=== PATIENT | female | born 1960 | race Caucasian/White ===

== ENCOUNTER → 2018-01-23 | Outpatient (CLI) | payer OTHER ==
[2018-01-23 11:24] LABS: ABSOLUTE EOSINOPHILS # (AUTO) 0.1 10^3/uL (0.0-0.6); ABSOLUTE LYMPHOCYTES (AUTO) 1.9 10^3/uL (0.5-4.7); ABSOLUTE MONOCYTES (AUTO) 0.4 10^3/uL (0.1-1.4); ABSOLUTE NEUT (AUTO) 4.3 10^3/uL (1.7-8.2); BASOPHILS % (AUTO) 0.6 % (0-2); EOSINOPHILS % (AUTO) 1.6 % (0-6); HEMATOCRIT 38.4 % (36.0-47.0); HEMOGLOBIN 13.1 g/dL (12.0-15.5); LYMPHOCYTES % (AUTO) 28.6 % (13-45); MEAN CORPUSCULAR HEMOGLOBIN 30.1 pg (27.0-33.4); MEAN CORPUSCULAR VOLUME 89 fl (80-97); MONOCYTES % (AUTO) 5.7 % (3-13); PLATELET COUNT 251 10^3/uL (150-450); RED BLOOD COUNT 4.34 10^6/uL (3.72-5.28); RED CELL DISTRIBUTION WIDTH 13.4 % (11.5-14.0); SEGMENTED NEUTROPHILS % (AUTO) 63.5 % (42-78); TOTAL CELLS COUNTED % (AUTO) 100 %; WHITE BLOOD COUNT 6.8 10^3/uL (4.0-10.5)
[2018-01-23 11:43] LABS: ALANINE AMINOTRANSFERASE 34 U/L (9-52); ALBUMIN 4.7 g/dL (3.5-5.0); ALKALINE PHOSPHATASE 77 U/L (38-126); ANION GAP 8 (5-19); ASPARTATE AMINO TRANSFERASE 29 U/L (14-36); BILIRUBIN,DIRECT 0.4 mg/dL (0.0-0.4); BILIRUBIN,TOTAL 0.6 mg/dL (0.2-1.3); BLOOD UREA NITROGEN 13 mg/dL (7-20); CALCIUM 9.8 mg/dL (8.4-10.2); CARBON DIOXIDE 27 mmol/L (22-30); CHLORIDE 105 mmol/L (98-107); CHOLESTEROL 311.56 mg/dL (0-200); GLUCOSE 85 mg/dL (75-110); POTASSIUM 4.6 mmol/L (3.6-5.0); SODIUM 140.3 mmol/L (137-145); TOTAL PROTEIN 7.9 g/dL (6.3-8.2); TRIGLYCERIDES 56 mg/dL (<150)
[2018-01-23 11:54] LABS: DIRECT LDL 205 mg/dL (<100)
== END ==
LOC: OD 10:14
PROVIDERS: ATTEND Internal Medicine
DX: Z00.00 Encounter for general adult medical examination without abnormal findings (principal); E78.00 Pure hypercholesterolemia, unspecified; I10 Essential (primary) hypertension; R06.02 Shortness of breath; R53.83 Other fatigue; Z79.899 Other long term (current) drug therapy
CPT/HCPCS: 36415; 80053; 80061; 84436; 84443; 85025

== ENCOUNTER 2018-06-25 02:28 | Emergency (ER) | payer OTHER ==
[2018-06-25] MEDS ORDERED: ASPIRIN 81 MG TABLET, CHEWABLE PO ONE (02:31)
--- NOTE | 2018-06-25 03:15 | RADIOLOGY REPORT (SQ) ---
Chest single view on 06/25/2018 at 3:11 AM CLINICAL INDICATION: Chest pain COMPARISON: 06/27/2015 FINDINGS: There is a possible thin walled cavitary lesion in the right upper lung. This likely was present on the previous exam as well and stability would suggest benign etiology. Follow-up chest CT could better evaluate. 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 The lungs are otherwise clear. Mild vascular calcification is noted in the aorta. Cardiac, hilar and mediastinal contours are within normal limits. Pulmonary vascularity is within normal limits. IMPRESSION: Possible thin-walled cavity in the right upper lung. If this is from unknown etiology consider CT follow-up. Otherwise no acute disease.
[2018-06-25 03:54] LABS: ABSOLUTE BASOPHILS # (AUTO) 0.1 10^3/uL (0.0-0.2); ABSOLUTE EOSINOPHILS # (AUTO) 0.2 10^3/uL (0.0-0.6); ABSOLUTE LYMPHOCYTES (AUTO) 2.5 10^3/uL (0.5-4.7); ABSOLUTE MONOCYTES (AUTO) 0.7 10^3/uL (0.1-1.4); ABSOLUTE NEUT (AUTO) 4.3 10^3/uL (1.7-8.2); BASOPHILS % (AUTO) 1.1 % (0-2); HEMATOCRIT 38.6 % (36.0-47.0); HEMOGLOBIN 13.2 g/dL (12.0-15.5); LYMPHOCYTES % (AUTO) 31.3 % (13-45); MEAN CORPUSCULAR HEMOGLOBIN 30.3 pg (27.0-33.4); MEAN CORPUSCULAR HGB CONC 34.2 g/dL (32.0-36.0); MEAN CORPUSCULAR VOLUME 88 fl (80-97); MONOCYTES % (AUTO) 9.5 % (3-13); PLATELET COUNT 286 10^3/uL (150-450); RED BLOOD COUNT 4.37 10^6/uL (3.72-5.28); RED CELL DISTRIBUTION WIDTH 13.3 % (11.5-14.0); SEGMENTED NEUTROPHILS % (AUTO) 55.1 % (42-78); TOTAL CELLS COUNTED % (AUTO) 100 %; WHITE BLOOD COUNT 7.9 10^3/uL (4.0-10.5)
--- NOTE | 2018-06-25 03:54 | ER Document Report ---
ED General - General Chief Complaint: Chest Tightness Stated Complaint: TIGHTNESS IN CHEST,BLOOD PRESSURE PROBLEM Time Seen by Provider: 06/25/18 03:51 Notes: Patient is a 58-year-old female presents with complaint of chest tightness. It has been ongoing since the evening. She says it is a intermittent tightness. Says mostly parasternal. Mostly the left side. Does not radiate. No shortness of breath. No vomiting. No abdominal pain. She denies ever having pain like this before. She was admitted 3 years ago for chest pain was and had a stress test which was negative and was diagnosed reflux. She said the pain she had 3 years ago was completely different from what she has today. She does not have a previous history of coronary disease. She has a history of hypertension. No family history of coronary disease. She does not smoke or drink alcohol. No other complaints at this time. TRAVEL OUTSIDE OF THE [place] IN LAST 30 DAYS: No - Related Data Allergies/Adverse Reactions: cefazolin sodium [From Anc] Allergy (Verified 05/12/12 10:14) rash itching Penicillins Allergy (Verified 05/12/12 10:14) welts Past Medical History - Social History Smoking Status: Never Smoker Frequency of alcohol use: None Drug Abuse: None Family History: Hypertension, Malignancy - Colon cancer in her mother - Past Medical History Cardiac Medical History: Reports: Hx Coronary Artery Disease, Hx Hypercholesterolemia Denies: Hx Heart Attack Pulmonary Medical History: Denies: Hx Asthma, Hx Bronchitis, Hx COPD, Hx Pneumonia Neurological Medical History: Denies: Hx Cerebrovascular Accident, Hx Seizures GI Medical History: Denies: Hx Hepatitis, Hx Hiatal Hernia, Hx Ulcer Musculoskeletal Medical History: Denies Hx Arthritis Psychiatric Medical History: Denies: Hx Depression Infectious Medical History: Denies: Hx Hepatitis Past Surgical History: Denies: Hx Hysterectomy, Hx Mastectomy, Hx Open Heart Surgery, Hx Pacemaker - Immunizations Hx Diphtheria, Pertussis, Tetanus Vaccination: Yes Review of Systems - Review of Systems Notes: My Normal Review Basic REVIEW OF SYSTEMS: CONSTITUTIONAL : Denies fever, chills, or sweats. Denies recent illness. CARDIOVASCULAR: Chest tightness RESPIRATORY: Denies cough, cold, or chest congestion. Denies shortness of breath, difficulty breathing, or wheezing. GASTROINTESTINAL: Denies abdominal pain. Denies nausea, vomiting, or diarrhea. GENITOURINARY: Denies difficulty urinating, painful urination, burning, frequency, or blood in urine. MUSCULOSKELETAL: Denies neck or back pain or joint pain or swelling. SKIN: Denies rash or skin lesions. NEUROLOGICAL: Denies altered mental status or loss of consciousness. Denies headache. Denies weakness or paralysis or loss of use of either side. Denies problems with gait or speech. Denies sensory or motor loss. ALL OTHER SYSTEMS REVIEWED AND NEGATIVE. Physical Exam - Vital signs Vitals: Temp Pulse Resp BP Pulse Ox 98.6 F 66 16 175/86 H 98 06/25/18 02:33 06/25/18 02:33 06/25/18 02:33 06/25/18 02:33 06/25/18 02:33 - Notes Notes: General Appearance: Well nourished, alert, cooperative, no acute distress, no obvious discomfort. Vitals: reviewed, See vital signs table. Head: no swelling or tenderness to the head Eyes: PERRL, EOMI, Conjuctiva clear Mouth: No decreasd moisture Lungs: No wheezing, No rales, No rhonci, No accessory muscle use, good air exchange bilaterally. Heart: Normal rate, Regular rythm, No murmur, no rub Chest wall: No worsening of pain with palpation of chest wall. Abdomen: Normal BS, soft, No rigidity, No abdominal tenderness, No guarding, no rebound, no abdominal masses, no organomegaly Extremities: strength 5/5 in all extremities, good pulses in all extremities, no swelling or tenderness in the extremities, no edema. Skin: warm, dry, appropriate color, no rash Neuro: speech clear, oriented x 3, normal affect, responds appropriately to questions. Course - Re-evaluation Re-evalutation: 06/25/18 05:16 Patient continues to look and feel improved. Currently her heart score is 3. I talked about discharge home versus doing a repeat troponin versus admission. Patient prefers to have a repeat troponin performed and then follow-up with cardiology for an outpatient reevaluation possible stress test. I think this is appropriate. I have ordered the repeat troponin. 06/25/18 07:02 Patient's pain improved after blood pressure improved with nitro. She never really had true pain. She does have slight tightness in her chest with what she described as a intermittent little flicker of a "typical feeling" in her chest. Nasal flickers are very rapid and short lasting less than 1 second. She has no history of cardiac disease. Her only risk factors high blood pressure and age. She does not smoke. She has no family history of heart disease. Her heart score is 3. I talked her length about what a heart score is and what it means when her heart score is 3 or less. I offered her repeat troponin testing with follow-up outpatient with boat master versus being admitted. Patient feels comfortable going home and agreed to delta troponin testing. Delta troponin was negative. Patient looks well and his vital signs are stable. Patient will be discharged home with a referral to Dr. Jauregui for close follow-up and reevaluation. Patient informed that she must return to ER immediately if she has recurrent chest pain, difficulty breathing, or feels unwell. Patient agrees with plan will be discharged home. Patient says her lisinopril is almost out and she thinks is therefore I did write a prescription for more for medication. Dictation of this chart was performed using voice recognition software; therefore, there may be some unintended grammatical errors. - Vital Signs Vital signs: Temp Pulse Resp BP Pulse Ox 98.6 F 66 13 109/72 95 06/25/18 02:33 06/25/18 02:33 06/25/18 06:01 06/25/18 06:00 06/25/18 06:01 - Laboratory Result Diagrams: 06/25/18 03:00 06/25/18 03:00 Laboratory results interpreted by me: 06/25/18 03:00 Total Protein 8.4 H - EKG Interpretation by Me Additional EKG results interpreted by me: 06/25/18 03:54 EKG is reviewed and interpreted by me. EKG shows sinus rhythm with rate of [address] segment elevation or depression. No ischemic T-wave inversions. PA interval, QRS duration, QTc intervals are within normal range. Old EKG for comparison is from June 27, 2015. Discharge - Discharge Clinical Impression: Chest pain Qualifiers: Chest pain type: unspecified Qualified Code(s): R07.9 - Chest pain, unspecified Hypertension Qualifiers: Hypertension type: unspecified Qualified Code(s): I10 - Essential (primary) hypertension Condition: Good Disposition: HOME, SELF-CARE Additional Instructions: Please take 81mg of aspirin every day. Please call Dr. Franks's office this am to make a close follow up appointment. Please return to the ER immediately if you develop worsening recurrent chest pain, difficulty breathing, or feel unwell. Prescriptions: Lisinopril 10 mg PO DAILY #20 tablet Referrals: CATHERINE OWENS MD [Primary Care Provider] - Follow up in 3-5 days KONSTANTIN JAUREGUI MD [ACTIVE STAFF] - 06/25/18 (call this morning to make a close follow up appointment)
[2018-06-25] MEDS ORDERED: NITROGLYCERIN 2% OINTMENT 1 GM PACKET TP ONE (04:03)
[2018-06-25 04:11] LABS: ALANINE AMINOTRANSFERASE 29 U/L (9-52); ALBUMIN 4.9 g/dL (3.5-5.0); ALKALINE PHOSPHATASE 86 U/L (38-126); ANION GAP 15 (5-19); ASPARTATE AMINO TRANSFERASE 29 U/L (14-36); BILIRUBIN,DIRECT 0.3 mg/dL (0.0-0.4); BILIRUBIN,TOTAL 0.4 mg/dL (0.2-1.3); BLOOD UREA NITROGEN 13 mg/dL (7-20); CALCIUM 9.7 mg/dL (8.4-10.2); CARBON DIOXIDE 24 mmol/L (22-30); CHLORIDE 100 mmol/L (98-107); CREATINE KINASE 55 U/L (30-135); GLUCOSE 99 mg/dL (75-110); POTASSIUM 4.1 mmol/L (3.6-5.0); TOTAL PROTEIN 8.4 g/dL (6.3-8.2)
[2018-06-25 04:29] LABS: TROPONIN I < 0.012 ng/mL
[2018-06-25 07:05] VITALS: BP 103/70
--- NOTE | 2018-06-25 09:22 | EKG REPORT ---
SEVERITY:- NORMAL ECG - SINUS RHYTHM : Confirmed by: Ariel Jack 25-Jun-2018 09:22:13
== END 2018-06-25 07:05 | disposition home or self-care (01) ==
LOC: ER 02:28
DX: R07.89 Other chest pain (principal); I10 Essential (primary) hypertension; Z79.899 Other long term (current) drug therapy; Z88.0 Allergy status to penicillin; Z88.1 Allergy status to other antibiotic agents
CPT/HCPCS: 36415; 71045; 80053; 82550; 82553; 84484; 85025; 93005; 93010; 99284